=== PATIENT | female | born 1955 | race Caucasian/White ===

== ENCOUNTER 2019-12-08 05:27 | Inpatient (IN) ==
--- NOTE | 2019-12-08 05:37 | PROVIDER DOCUMENTATION ---
HPI-General Adult - General Chief Complaint: Altered Mental Status Stated Complaint: AMS Time Seen by Provider: 12/08/19 05:29 Source: EMS Allergies/Adverse Reactions: Patient Allergies Allergy/AdvReac Type Severity Reaction Status Date / Time latex AdvReac RASH Verified 12/08/19 06:16 Home Medications: Home Medication List Medication Instructions Recorded Confirmed Last Taken Type Folic Acid 1 mg PO BID 30 Days tablet 03/09/17 12/08/19 12/07/19 Rx Omeprazole [Prilosec] 40 mg PO DAILY@0700 30 Days 03/09/17 12/08/19 12/07/19 Rx capsule Bupropion S.r. [Wellbutrin Sr] 150 mg PO Q12HR 12/08/19 12/08/19 12/07/19 History Donepezil HCl 5 mg PO QPM 12/08/19 12/08/19 12/07/19 History Duloxetine [Cymbalta] 60 mg PO DAILY 12/08/19 12/08/19 12/07/19 History Guanfacine [Tenex] 1 mg PO RTTID 12/08/19 12/08/19 12/07/19 History Levothyroxine [Synthroid] 50 microgm PO DAILY 12/08/19 12/08/19 12/07/19 History Talent Carbonate 150 mg PO BID 12/08/19 12/08/19 12/07/19 History Mirtazapine 30 mg PO RTQHS 12/08/19 12/08/19 12/07/19 History Olanzapine 10 mg PO DAILY 12/08/19 12/08/19 12/07/19 History Primidone 50 mg PO BID 12/08/19 12/08/19 12/07/19 History Propranolol HCl [Propranolol HCl 120 mg PO DAILY 12/08/19 12/08/19 12/07/19 H istory ER] Sulfasalazine 500 mg PO TID 12/08/19 12/08/19 12/07/19 History Thiamine [Vitamin B-1] 100 mg PO DAILY 12/08/19 12/08/19 12/07/19 History Trazodone [Desyrel] 50 mg PO QPM PRN PRN 12/08/19 12/08/19 12/07/19 History - History of Present Illness -Gen Adult Nature of Presenting Problems: HX BY EMS. REPORT CALL EMS FOR PT DOWN IN BATHROOM FLOOR AND UNABLE TO GET UP. NOT RESPOSIVE TO VERBAL STEMULI AT SCENE. NOT HYPOXIC, BS WAS 118. DID NOT COME TO ER WITH PT. Review of Systems - Adult - REVIEW OF SYSTEMS - ADULT ROS:: unobtainable per condition Constitutional: denies: chills, fever, night sweats Past History - Adult - PAST MEDICAL HISTORY-ADULT Review of Records: reports: Nursing Assessment Review, Medications Reviewed, Social history reviewed & non-contributory. Major Childhood Illnesses: reports: denies history Cardiovascular: reports: denies history, HTN Respiratory: reports: denies history Gastrointestinal: reports: denies history, GERD Obstetrical/Gynecological: reports: denies history Genitourinary: reports: denies history Musculoskeletal: reports: denies history Neurological: reports: dementia, Seizures/Epilepsy Psychiatric: reports: depression Endocrine/Immune: reports: denies history, thyroid disorder Other Conditions: reports: denies history - PRIOR SURGERIES/PROCEDURES Surgical/Procedure History: reports: hysterectomy, cholecystectomy - IMMUNIZATION STATUS Childhood Immunizations: See Nurse Assessment Flu Vaccine: See Nurse Assessment - FAMILY HISTORY Family History: reviewed, not pertinent Physical Exam-General - PHYSICAL EXAM-ADULT Initial Vital Signs Reviewed: Yes (RECTAL TEMP 97.) - CONSTITUTIONAL General Appearance: obtunded - EYES Eyes: PERRL/EOMI, pink conjunctivae, other (APPEARS TO HAVE CORNEAL ABRASIONS R>L, ANT CHAMBERS CLEAR, PUPILS REACTIVE). negative: sclera injected, scleral icterus - HEAD, EARS, NOSE, MOUTH & THROAT HENMT: normocephalic/atraumatic, moist mucous membranes, dental decay - NECK Neck: non-tender, full range of motion, supple - RESPIRATORY Respiratory: chest non-tender, lungs clear, normal breath sounds, no respiratory distress, no accessory muscle use, rhonchi (UPPER AIRWAY RHONCHI BUT NO RALES OR TACHYPENA OR DISTRESS) - CARDIOVASCULAR Cardiovascular: regular rate, rhythm, no edema, no JVD, no murmur - GASTROINTESTINAL (ABDOMEN) Abdominal Exam: non tender, soft, no organomegaly. negative: rigid - MUSCULOSKELETAL Back Exam: normal inspection Extremity: normal range of motion, non-tender, normal inspection, no pedal edema , no calf tenderness, pelvis stable, slow capillary refill. negative: deformity - SKIN Integumentary: normal turgor, warm/dry (COOL AND MOTTLED HANDS AND FEET, PINK TORS. TOBACCO STAINS RIGHT FINGERS), mottled - NEUROLOGIC Neurologic: other (VERY DIFFICULT TO TEST. PT UNRESPOSIVE TO VERBAL AND TO STERNAL RUB AND PLACEMENT OF GUZMAN. SEEMS TO HAVE MOTOR TONE ALL EXTREMITIES AND FACE IS SYMMETRIC). negative: focal weakness - PSYCHIATRIC Psych/Mental Status: other (EYES OPEN, STARING, UNREPONSIVE TO VERBAL OR STERNAL RUB) Progress - PLAN OF CARE/RESULTS Progress/Plan/Lab Results: Orders Category Date Time Status Cardiac Monitoring DIRECTED Care 12/08/19 05:25 Ordered Finger Stick Blood Sugar (ED) DIRECTED Care 12/08/19 05:24 Ordered Guzman Cath Insertion ORDERED Care 12/08/19 05:29 Ordered Saline Loc NOW Care 12/08/19 05:25 Ordered CHEST-PORTABLE [RAD] Stat Exams 12/08/19 05:[address] HEAD W/O CONTRAST [CT] Stat Exams 12/08/19 05:[address] HEAD W/O CONTRAST [CT] Stat Exams 12/08/19 05:26 Ordered ABG [RESP] Stat Lab 12/08/19 05:25 Ordered AMMONIA [CHEM] Stat Lab 12/08/19 05:25 Uncollected BLOOD CULTURE [BLDCUL] Stat Lab 12/08/19 05:26 Ordered CBC WITH ELECTRONIC DIFF [HEME] Stat Lab 12/08/19 05:26 Uncollected COMPREHENSIVE METABOLIC PANEL [CHEM] Stat Lab 12/08/19 05:26 Ordered FREE T4 Stat Lab 12/08/19 05:[address] Stat Lab 12/08/19 05:26 Uncollected LACTATE, PLASMA [CHEM] Stat Lab 12/08/19 05:26 Uncollected MAGNESIUM [CHEM] Stat Lab 12/08/19 05:26 Uncollected TROPONIN T HIGH SENSITIVITY Stat Lab 12/08/19 05:26 Uncollected URINALYSIS W/POSS RFLX CULT [URINALYSIS] Stat Lab 12/08/19 05:26 Uncollected URINE DRUG SCREEN PL Stat Lab 12/08/19 05:26 Uncollected EKG [EKG] Stat Ther 12/08/19 05:25 Ordered pt had a critical call on the floor and went upstairs and started bipap. pt then declined and was brought to the ed still an in pt and pt was intubated in trauma room. pt was intubated at 1359 with no issue and then transferred to [facility] ICU bed 12 Ativan added for seizure activity post intubation, propofol drip pxcray shows good tube placement. Added critical care time 50 min Result Diagrams: 12/08/19 05:59 12/08/19 05:59 - REASSESSMENT Reassessment #1 Time Reassessed: 06:00 Status: improving (NOW BLINKING EYES, APPEARS TOHAVE CORNEAL MCELROY OR ABRASION, SCORH OF LEFT FRONTAL SCALP HAIR EVIDENT. BECOMMING MORE RESPONSIVE, BLINKING HER EYES AND SEEMS TO RESPOND TO HER NAME. INTIAL GCS 6 BUT NOW 8. WILLHOLD OFF ON INTUBATION /SEDATION P OX 96% ROOM AIR AND WOULD RATHER NOT SEDATE JUST NOW TO SEE IF CAN IMPROVE REPOSNSIVENESS. INITAL FSBS 118. BP185/104. CT BRAIN W/O ACUTE CAHNGES.) Reassessment #2 Time Reassessed: 08:00 Status: improving (Seen and examined by me. Case discussed with Dr. Sneed at shift change. Awaiting call back from hospitalist, whom we have re-paged. Patient currently is at GCS 14. Is normotesnive at this time. Slightly toxic o n lithium, positive for phenobarbitol on UDS. Hyponatremic on chemistries. Lactic is slightly elevated, and it is unclear how she wound up on floor. It is possible she had seizure last night/this morning as her mental status has improved since arrival in ED per Dr. Sneed.) - EKG 1 Time of EKG reading by physician:: 06:27 EKG Read and Signed by:: Jony Sneed EKG Interpretation (*Must complete 3 of following elements*): Abnormal Rate: 87 Rhythm: NSR [place]: normal QRS: normal VA Interval: prolonged ST Wave: normal Comments: SINUS WITH 1ST DEGREE AV BLOCK - XRAY 1 XRAY Study: Chest Impression: Normal (NO INFILTRATES OR MASSES.) - CT/MRI 1 CT Study: Head Impression: Normal, See EMR Report - CONSULTS/PCP/HOSPITALIST Notification #1 *Consult/PCP/Hospitalist*: Isrrael paged at [phone], [phone] Time Discussed: 08:37 Consult Disposition: Will see in ED, Admit - CHANGE OF SHIFT REPORT (ED Provider) 1 Report Given and Care Transferred to:: DR Vickie DENNIS Time of Transfer: 07:24 Procedures - INTUBATION Time of Intubation: 15:39 Mallampati Class: 2 Intubation Method: orotracheal Equipment: Glidescope Tube Size (cm): 7.0 Pretreated with 100% Oxygen?: Yes Breath Sounds after Intubation: equal ETT Primary Tube Confirmation: Capnometry CO2 Change, Direct Visualization, Chest Rise and Fall, Tube placement verified on XRAY, Tube Repositioned, Placement re-confirmed with CXR after reposition Intubation Complications: no complications Vent Settings: See Respiratory Therapy Notes Departure - Departure Date of Disposition Decision: 12/08/19 Time of Disposition Decision: 08:37 DIAGNOSIS: Hyponatremia, Tobacco use disorder Talent intoxication Qualifiers: Encounter type: initial encounter Injury intent: accidental or unintentional Qualified Code(s): T56.891A - Toxic effect of other metals, accidental (unintentional), initial encounter Altered mental state Qualifiers: Altered mental status type: stupor Qualified Code(s): R40.1 - Stupor Corneal abrasion of both eyes Qualifiers: Encounter type: initial encounter Qualified Code(s): S05.01XA - Injury of conjunctiva and corneal abrasion without foreign body, right eye, initial encounter Seizure disorder, primary generalized Qualifiers: Intractability: not intractable Status epilepticus: without status epilepticus Qualified Code(s): G40.309 - Generalized idiopathic epilepsy and epileptic syndromes, not intractable, without status epilepticus Disposition: ADMITTED INPATIENT 09 Certified Medical Emergency: Emergent Condition: Fair - Critical Care Note This patient required my direct & personal management of CC.: Yes Total Time (mins): 50 Critical Care Statement: This patient required my direct personal management to treat or rule out processes, the absence of which, could potentiallly result in sudden, clinically significant life or limb threatening deterioration. Attestation - Physician/ MIGUEL A Attestation Patient care was provided by Advanced Practice Provider:: No The physician spent face to face time with patient:: Yes Advanced Practice Provider documentation review:: Supervising physician onsite and consulted in the evaluation and care of this patient. The physician did have a face to face encounter with the patient. Glascow Coma Score - Glascow Coma Score Best Eye Response ([place]): (4) open spontaneously Best Verbal Response ([place]): (4) confused conversation Best Motor Response ([place]): (6) obeys commands [place] Total: 14 GCS Comment: Done by me at 1947
[2019-12-08 05:43] LABS: BE -4.6 mmoll (-3.0-3.0); BLOOD TYPE ARTERIAL; METHB 2.9 % (0.0-1.5); O2(CT) 16.1 mL/dL (15.0-23.0); PCO2(98.6) 32 mmHg (35-45); PO2(98.6) 54 mmHg (60-100); SAMPLE BLOOD; SAO2 90.7 % (95.0-100.0); THB 13.4 g/dL (11.5-17.4); pH(98.6) 7.39 (7.35-7.45)
--- NOTE | 2019-12-08 05:44 | Diag Imaging Result Doc PS360 ---
EXAM: CT HEAD W/O CONTRAST HISTORY: AMS TECHNIQUE: CT head without intravenous contrast COMPARISON: 02/15/2017 FINDINGS: No parenchymal hemorrhage. No epidural or subdural hematoma. No subarachnoid hemorrhage. Mild atrophy. No mass identified on this noncontrasted exam. No hydrocephalus. No sinus opacification. IMPRESSION: 1.No hemorrhage 2.Mild atrophy with mild chronic microvascular ischemic changes This exam was performed using automated exposure control, adjustment of mA or kV according to patient size, and/or use of iterative reconstruction technique. Electronically signed by Krishan Cervantes 12/08/2019 5:42 AM
[2019-12-08] MEDS ORDERED: AMIDATE IV ONE (05:47)
[2019-12-08] MEDS ORDERED: AMIDATE ONE ×3 (05:47→14:57)
[2019-12-08] MEDS ORDERED: QUELICIN ONE ×3 (05:48→14:58)
[2019-12-08] MEDS ORDERED: QUELICIN IV ONE (05:48)
[2019-12-08 06:15] LABS: ALLEN TEST NO; MODALITY ROOM AIR; O2HB 85.6 % (95.0-99.0)
[2019-12-08 06:17] LABS: URINE SOURCE CATH
[2019-12-08 06:19] LABS: BASO# 0.04 X1000 (0.0-0.2); BASO% 0.4 % (0.0-0.8); EOS# 0.29 X1000 (0.0-0.7); HEMATOCRIT 41.3 % (37.0-47.0); HEMOGLOBIN 12.7 g/dL (12.0-16.0); IMM GRAN# 0.07 X1000 (0.0-0.04); IMM GRAN% 0.7 % (0.0-0.5); LYMPH# 1.41 X1000 (1.2-3.4); LYMPH% 14.5 % (20.5-51.1); MCH 28.3 PG (27-31); MCHC 30.8 g/dL (33-37); MONO# 0.62 X1000 (0.11-0.59); MONO% 6.4 % (1.7-9.3); NEUT# 7.27 X1000 (1.4-6.5); PLT 352 X1000 (130-400); RBC 4.49 XMIL (4.2-5.4); RDW 14.8 % (11.5-14.5)
[2019-12-08 06:24] LABS: BILIRUBIN URINE NEGATIVE (NEGATIVE); BLOOD URINE NEGATIVE (NEGATIVE); COLOR YELLOW; GLUCOSE URINE NEGATIVE (NEGATIVE); KETONE URINE NEGATIVE (NEGATIVE); LEUKOCYTES URINE NEGATIVE (NEGATIVE); NITRITE URINE NEGATIVE (NEGATIVE); PH URINE 6.5; PROTEIN URINE TRACE mg/dL (NEGATIVE); SP GRAVITY URINE 1.007; TURBIDITY URINE CLEAR (CLEAR); UR EPITHELIAL CELLS <10 /HPF (<10); URINE BACTERIA NEGATIVE /HPF; URINE RBC <10 /HPF (<10); URINE WBC <10 /HPF (<10); UROBILINOGEN URINE NORMAL (NORMAL)
[2019-12-08 06:30] LABS: UR AMPHETAMINES QUAL NONE DETECTED (NONE DETECT); UR BARBITUATES QUAL PRESUMPTIVE POSITIVE (NONE DETECT); UR BENZODIAZEPIN QUAL NONE DETECTED (NONE DETECT); UR CANNABINOIDS QUAL NONE DETECTED (NONE DETECT); UR COCAINE QUAL NONE DETECTED (NONE DETECT); UR METHADONE QUAL NONE DETECTED (NONE DETECT); UR METHAMPHETAMINE QUAL NONE DETECTED (NONE DETECT); UR OPIATES QUAL NONE DETECTED (NONE DETECT); UR OXYCODONE QUAL NONE DETECTED (NONE DETECT); UR PCP QUAL NONE DETECTED (NONE DETECT); UR PROPOXYPHENE QUAL NONE DETECTED (NONE DETECT); UR TCA QUAL NONE DETECTED (NONE DETECT)
[2019-12-08 06:38] LABS: INFLUENZA A NEGATIVE (NEGATIVE); INFLUENZA B NEGATIVE (NEGATIVE)
[2019-12-08 06:39] LABS: ALBUMIN 4.2 g/dL (3.5-5.0); CALCIUM 9.2 mg/dL (8.8-10.2); POTASSIUM 4.8 mmol/L (3.5-5.1); TOTAL BILIRUBIN 0.4 mg/dL (0.20-1.00); TOTAL PROTEIN 7.3 g/dL (6.3-8.3)
--- NOTE | 2019-12-08 06:43 | Diag Imaging Result Doc PS360 ---
EXAM: CHEST-PORTABLE HISTORY: AMS TECHNIQUE: Single view COMPARISON: 02/23/2017 FINDINGS: The lungs are well expanded. The heart is not enlarged. The vessels are not distended. There are no infiltrates. No effusion identified. IMPRESSION: Negative exam. Electronically signed by Krishan Cervantes 12/08/2019 6:40 AM
--- NOTE | 2019-12-08 06:51 | EKG Report ---
Test Performed on : 12/08/2019 06:27:30 AM Test Reason : ALTERED MENTAL STATE Blood Pressure : / mmHG Vent. Rate : 087 BPM Atrial Rate : 087 BPM P-R Int : 210 ms QRS Dur : 064 ms QT Int : 348 ms P-R-T Axes : 074 055 086 degrees QTc Int : 418 ms Sinus rhythm. with 1st degree AV block. Otherwise normal ECG When compared with ECG of 24-FEB-2017 02:45, Criteria for Septal infarct are no longer present Unconfirmed Result
[2019-12-08] MEDS ORDERED: GENTAMICIN 0.3% OPH OINT BOTH EYES ONE (07:21)
[2019-12-08] MEDS ORDERED: NS 1,000 ML IV ONE (07:23)
[2019-12-08] MEDS ORDERED: GENTAMICIN 0.3% OPH DROPS BOTH EYES ONE (08:00)
[2019-12-08] MEDS ORDERED: ZOFRAN IV PRN (10:12)
[2019-12-08] MEDS ORDERED: PROTONIX IV SCH (10:15)
[2019-12-08] MEDS ORDERED: SODIUM CHLORIDE 0.9% INJ SCH ×2 (10:15→17:30)
[2019-12-08] MEDS: DUONEB (A & A) INH SCH ×4 (11:11→23:50)
[2019-12-08] MEDS: GENTAMICIN 0.3% OPH DROPS BOTH EYES SCH ×2 (12:05→21:29)
[2019-12-08] MEDS: M.V.I.-12 10 ML, FOLIC ACID 1 MG, MAGNESIUM SULFATE 1 GM, THIAMINE 100 MG in NS 1,000 ML IV SCH (13:09)
[2019-12-08] MEDS ORDERED: LASIX IV ONE (14:15)
[2019-12-08] MEDS ORDERED: LASIX ONE (14:23)
[2019-12-08] MEDS ORDERED: MORPHINE IV ONE ×2 (14:28)
[2019-12-08] MEDS ORDERED: MORPHINE ONE (14:41)
[2019-12-08] MEDS ORDERED: S2 RACEPINEPHRINE 2.25% INH ONE (14:51)
[2019-12-08] MEDS ORDERED: S2 RACEPINEPHRINE 2.25% ONE (14:57)
[2019-12-08 15:27] LABS: BE -11.1 mmoll (-3.0-3.0); BLOOD TYPE ARTERIAL; HCO3-(ACT) 16.1 mmoll (20.0-26.0); METHB 1.6 % (0.0-1.5); O2(CT) 18.3 mL/dL (15.0-23.0); O2HB 92.3 % (95.0-99.0); PO2(98.6) 94 mmHg (60-100); SAMPLE BLOOD; SAO2 95.2 % (95.0-100.0); SRATE 14 BPM
[2019-12-08 15:43] LABS: CK INDEX 0.9 (0.0-2.5); CK-MB 1.95 ng/mL (0.0-5.0)
[2019-12-08] MEDS ORDERED: DUONEB (A & A) INH PRN (15:52)
[2019-12-08] MEDS ORDERED: DIPRIVAN 1% 1,000 MG/100 ML BOTTLE ONE (15:53)
[2019-12-08] MEDS ORDERED: ATIVAN ONE (15:56)
[2019-12-08] MEDS: DIPRIVAN 1% 1,000 MG/100 ML BOTTLE IV SCH ×2 (16:03→20:32)
--- NOTE | 2019-12-08 16:48 | Diag Imaging Result Doc PS360 ---
EXAM: CHEST-PORTABLE HISTORY: sob, CAT TECHNIQUE: Single view COMPARISON: 6:15 AM FINDINGS: Interval placement of an endotracheal tube. This is located 1 to 2 cm above the cassandra. The lungs are well expanded and clear. IMPRESSION: Endotracheal tube in good position Electronically signed by Krishan Cervantes 12/08/2019 4:46 PM
[2019-12-08 17:01] LABS: pH(98.6) 7.08 (7.35-7.45)
[2019-12-08 17:03] LABS: PCO2(98.6) 67 mmHg (35-45)
[2019-12-08 17:04] LABS: MODALITY BI PAP
[2019-12-08 17:05] LABS: ALLEN TEST NO
[2019-12-08] MEDS ORDERED: SODIUM CHLORIDE 0.9% INJ PRN (17:39)
[2019-12-08 17:48] LABS: ALLEN TEST YES; BE -6.5 mmoll (-3.0-3.0); BLOOD TYPE ARTERIAL; HCO3-(ACT) 19.8 mmoll (20.0-26.0); O2(CT) 18.6 mL/dL (15.0-23.0); O2HB 94.9 % (95.0-99.0); PCO2(98.6) 41 mmHg (35-45); PO2(98.6) 131 mmHg (60-100); SAMPLE BLOOD; SAO2 97.3 % (95.0-100.0); SRATE 12 BPM; THB 13.8 g/dL (11.5-17.4); TVOL 500 mL; pH(98.6) 7.29 (7.35-7.45)
[2019-12-08 17:49] LABS: MODALITY VENTILATOR
--- NOTE | 2019-12-08 17:49 | HISTORY AND PHYSICAL ---
CHIEF COMPLAINT: Altered mental status, fall. HISTORY OF PRESENT ILLNESS: This is a 64-year-old female who presented to the emergency room via EMS, after her found her lying on the bathroom floor. He was unable to pick her up. She was unable to get up even with help. EMS reports that the patient was not responsive to verbal stimuli, was not hypoxic, blood sugar was 118 when they arrived. On arrival to the emergency room, the patient was unresponsive to verbal stimuli as well as a sternal rub. At first arrival, she would open her eyes and stare straight ahead. According to the chart, within about 30 minutes after arriving, she began to blink her eyes, responding to verbal stimulation. At the time of my exam at about 9:30, the patient was awake, she was alert. Her granddaughter was at the bedside. She would look at the granddaughter, make eye contact and smile any time. She responded all tactile stimuli. She would open her eyes to verbal stimuli, although she intermittently answered the staff. When her granddaughter spoke, she would open her eyes, look toward her granddaughter. She would attempt to answer her back. She would follow her commands. Ms. Jaffe has a history of psychiatric disorders, being admitted to [facility] twice in 2017. She did have heavy depression, even being catatonic at one time. The granddaughter states that Ms. Jaffe had been in depression with episodes similar to this, having catatonia at one of the admissions. The patient lives with her . Her granddaughter and son are very active in her care. The granddaughter states that in the past, Ms. Jaffe has had difficulty with her medications. Now, the granddaughter makes a pill box for a week, gives it to the grandfather, and he dispenses the medications. She did report that it seems that Ms. Jaffe has had an increase in her dementia over the last few months, although it has been a very slight increase, and she states that she was in her normal health until she was found on the floor. PAST MEDICAL HISTORY: Dementia, hypertension, seizure disorder, hypothyroid, depression. PAST SURGICAL HISTORY: Cholecystectomy and hysterectomy. SOCIAL HISTORY: She smokes 1 to 2 packs a day. She does drink 3 beers a day. ALLERGIES: Latex. HOME MEDICATIONS: A list will be obtained by the nursing staff and once verified, we will review and restart as appropriate. REVIEW OF SYSTEMS: Unable to obtain at this time. PHYSICAL EXAMINATION: GENERAL: This is a 64-year-old female, who is lying on the stretcher in the emergency room in no distress. VITAL SIGNS: Blood pressure is 133/75 with a heart rate of 89. Respirations are 20. Temperature is 98.2 degrees. O2 saturations are 97 to 99 percent on room air. EYES: Pupils equal, round, react to light. Sclerae are anicteric. HEENT: Head is normocephalic, atraumatic. Mucous membranes are moist. NECK: Supple with trachea midline. CARDIOVASCULAR: Regular rate and rhythm. S1 and S2 appreciated. Peripheral pulses are palpable x4 extremities. No murmur noted. PULMONARY: Breath sounds are diminished throughout. Chest rises and falls symmetric with respiration. GASTROINTESTINAL: Abdomen is soft, nondistended, with bowel sounds in all 4 quadrants. NEUROLOGIC: She will open her eyes to verbal stimuli. She does withdraw from pain. She does open her eyes to any conversation from her granddaughter. She does look toward her as she walks across the room. She does attempt to follow commands. She does have garbled speech or mumbling back to anything her granddaughter states to her. SKIN: Warm and dry, with some scorched hair noted to her left frontal scalp, although the granddaughter is unaware of any recent garcia. No scorched/burned nasal hairs, eyelashes or eyebrows noted. LABORATORY AND DIAGNOSTIC DATA: WBC is 9.7 with hemoglobin 12.7, hematocrit 41.3, and platelets of 352,000. Sodium is 125, potassium 4.8, BUN 6, creatinine 1 with a glucose of 120. Urinalysis is essentially negative. Urine drug screen is positive for barbiturates with a lithium level being 1.32. Influenza A and B are negative. Blood cultures are pending. CT of the head reveals no hemorrhage, no hydrocephalus, no sinus opacification, no mass identified. Mild atrophy. Chest x-ray revealed a negative exam. Vessels are not distended. There are no infiltrates. Lungs are well expanded. Heart is not enlarged. ASSESSMENT: 1. Hyponatremia. 2. Altered mental status. 3. Corneal abrasions bilaterally with scorched area noted to her hair on her left forehead. 4. History of seizure disorder. 5. History of depression. 6. Dementia. 7. Hypertension. 8. Hypothyroid. PLAN: The patient will be admitted to the medical-surgical floor, where she will be placed on telemetry. She will be placed on fall precautions with neurologic checks every 4 hours. DuoNeb q.4 hours. We will use gentamicin eyedrops every 8 hours. We will continue with IV hydration. The daughter does state that the patient drinks at least 3 beers a day every day and she has for quite some time. We will obtain a blood alcohol. The daughter also stated that her appetite has been decreasing over the past few months, eating less. We will give a banana bag. We will check a BMP and a CBC with differential in the morning. We will identify her home medications and continue as appropriate. Give Protonix IV once. She is awake and alert, we will be able to change that over to oral and continue her home medications. For DVT prophylaxis, will use SCDs. We will give no anticoagulation as we are unsure of any injuries and falls. Plan was discussed with Dr. Arcos. Further treatments pending hospital course. Dictated by MIRIAM Parker for Azael Arcos MD cc: MIRIAM Parker MD [facility]
[2019-12-08] MEDS: ZYVOX 600 MG/D5W 600 MG/300 ML IVPB IV SCH (18:16)
[2019-12-08] MEDS: ZOSYN 3.375 GM in NS 50 ML IV SCH (18:16)
[2019-12-08 18:36] LABS: HEMOGLOBIN A1C 3.9 % (4.8-6.0)
[2019-12-08 19:07] LABS: ALB/GLOB RATIO 1.4; ALBUMIN 3.7 g/dL (3.5-5.0); CALCIUM 8.8 mg/dL (8.8-10.2); CREATININE 1.3 mg/dL (0.5-0.9); DIRECT BILIRUBIN 0.4 mg/dL (0.00-0.20); POTASSIUM 4.8 mmol/L (3.5-5.1); TOTAL BILIRUBIN 0.72 mg/dL (0.20-1.00); TOTAL PROTEIN 6.4 g/dL (6.3-8.3)
[2019-12-08 19:35] LABS: CK INDEX 0.9 (0.0-2.5); CK-MB 1.94 ng/mL (0.0-5.0)
--- NOTE | 2019-12-08 20:26 | Diag Imaging Result Doc PS360 ---
EXAM: KUB ABDOMEN HISTORY: NG and abdominal distention TECHNIQUE: Single view COMPARISON: None. FINDINGS: Nasogastric tube overlies the stomach. Stomach and bowel loops are filled with air. No organomegaly. There are surgical clips in the right upper quadrant. No abnormal calcifications. IMPRESSION: Nasogastric tube in the stomachTw Electronically signed by Krishan Cervantes 12/08/2019 8:23 PM
[2019-12-09] MEDS: DIPRIVAN 1% 1,000 MG/100 ML BOTTLE IV SCH ×3 (00:14→09:22)
--- NOTE | 2019-12-09 00:56 | HISTORY AND PHYSICAL ---
ADDENDUM: Patient seen and examined by myself. Full note dictated and discussed with nurse practitioner. Patient presented to the hospital initially confused. Ambulance apparently had been called as she was found down in her bathroom floor and she was unresponsive to verbal stimuli. Upon arrival to the ER, she is easily arousable. Vital signs are stable. She opens her eyes and attempts to answer questions. She is in minimal respiratory distress. She is off BiPAP. Therefore, we will admit her to the floor and continue her workup. She does have hyponatremia. Approximately 6 hours after initial evaluation, Ms Jaffe had been transferred to the floor. Upon re-evaluation by Respiratory Therapy, they noted that she was agonal. Cat call was performed. She was moved down to the ER. She was placed on BiPAP. Unfortunately, this was not effective enough with pH of 7.0. Therefore, she will be intubated and transferred to [facility]. cc: Azael Arcos MD MTDD
--- NOTE | 2019-12-09 02:50 | PULMONOLOGY CONSULTATION ---
DATE: 12/08/2019 REASON FOR CONSULTATION: Respiratory failure. HISTORY OF PRESENT ILLNESS: Ms. Jaffe is a 64-year-old female with history of seizure disorder, history of dementia, history of depression with ongoing alcohol and tobacco use, who was found lying in the floor by her unresponsive. The patient was not hypoxemic and had a normal blood glucose. The patient was brought to the emergency room and had gradual improvement in her mental status over several hours. She was being evaluated per the floor when she developed diaphoresis, tachypnea, and progressive hypoxemia. The patient was urgently intubated. While on the ventilator, she did have a witnessed seizure. She has subsequently been transferred to [facility]. PAST MEDICAL HISTORY: 1. History of major depressive disorder with psychotic features. The patient admitted to [facility] in January of 2017 for altered mental status and catatonia. 2. History of hypothyroidism. 3. History of seizure disorder. 4. Status post cholecystectomy. 5. Status post hysterectomy. 6. History of LASIK eye surgery. 7. Gastroesophageal reflux disease. 8. History of urinary tract infection. 9. Hypertension. SOCIAL HISTORY: Forty pack-year history for tobacco. Occasional alcohol use. PHYSICAL EXAMINATION: General: Reveals a sedated white female resting comfortably on mechanical ventilation. Vital Signs: Blood pressure 117/78, heart rate 102, respiratory rate 20, oxygen saturation 98%. HEENT: Pupils are equal. Oropharynx appears clear without lesions. Neck: Supple. Chest: Reveals good air entry bilaterally with occasional rhonchi. Cardiac: S1-S2. Abdomen: Distended with increased tympany. Extremities: Without edema. LABORATORIES: Chest x-ray reveals good endotracheal tube placement without significant infiltrates. She has marked distention of the abdomen. Arterial blood gas reveals a pH 7.29, pCO2 of 41, PO2 of 131. Chemistry, sodium 133, potassium 4.8, chloride 100, bicarbonate 18, anion gap 15. TSH is elevated at 11.13. High sensitivity troponin initial was 12, second was 24. IMPRESSION: A 64-year-old with: 1. Acute hypoxemic respiratory failure. 2. Seizure disorder. 3. Elevated troponin level, high sensitivity. 4. Hypothyroidism. 5. Abdominal distention with ileus versus small bowel obstruction. DISCUSSION: A 64-year-old with problems outlined above. The patient was found with altered mental status and has had another seizure today suggesting that a seizure may have caused her decompensation. It is not clear that the event that she had prior to intubation was seizure related by description, but may have been. With elevation of the troponin, cannot rule out a coexistent seizure/cardiac ischemia. RECOMMENDATIONS: 1. Continue ventilatory support through the evening. 2. Continue sedation. 3. Follow up CK level tomorrow to rule out rhabdomyolysis. 4. Follow up troponin level to rule out evidence of cardiac ischemia. 5. Continue gastric acid suppression. 6. Prognosis is guarded. TIME: Spent in critical care management, 1 hour. cc: Erick Schaefer MD
[2019-12-09] MEDS: DUONEB (A & A) INH SCH ×6 (03:25→23:45)
[2019-12-09 04:29] LABS: ALLEN TEST YES; BE -2.7 mmoll (-3.0-3.0); BLOOD TYPE ARTERIAL; HCO3-(ACT) 22.8 mmoll (20.0-26.0); METHB 1.7 % (0.0-1.5); O2(CT) 18.6 mL/dL (15.0-23.0); O2HB 95.9 % (95.0-99.0); PCO2(98.6) 40 mmHg (35-45); PO2(98.6) 150 mmHg (60-100); SAMPLE BLOOD; SAO2 97.8 % (95.0-100.0); SRATE 12 BPM; THB 13.6 g/dL (11.5-17.4); TVOL 500 mL; pH(98.6) 7.36 (7.35-7.45)
[2019-12-09 04:37] LABS: MODALITY VENTILATOR
[2019-12-09] MEDS: ZOSYN 3.375 GM in NS 50 ML IV SCH ×5 (05:01→17:20)
[2019-12-09] MEDS: GENTAMICIN 0.3% OPH DROPS BOTH EYES SCH ×3 (05:01→20:57)
[2019-12-09] MEDS: ZYVOX 600 MG/D5W 600 MG/300 ML IVPB IV SCH ×2 (05:01→18:12)
[2019-12-09 05:47] LABS: HEMATOCRIT 42.3 % (37.0-47.0); HEMOGLOBIN 12.7 g/dL (12.0-16.0); MCH 28.9 PG (27-31); MCV 96.4 FL (81-99); MPV 10.8 FL (7.4-10.4); RBC 4.39 XMIL (4.2-5.4); WBC 11.86 X1000 (4.8-10.8)
[2019-12-09] MEDS: SYNTHROID IV SCH (06:35)
[2019-12-09] MEDS: PROTONIX IV SCH (06:35)
[2019-12-09 07:29] LABS: CALCIUM 8.8 mg/dL (8.8-10.2); CREATININE 1.2 mg/dL (0.5-0.9); POTASSIUM 4.1 mmol/L (3.5-5.1)
--- NOTE | 2019-12-09 08:10 | Diag Imaging Result Doc PS360 ---
EXAM: CHEST-PORTABLE INDICATION: respiratory failure on ventilator TECHNIQUE: One view COMPARISON: 12/08/2019 FINDINGS: The ET tube is in stable position. There has been interval placement of an NG tube, which projects below the diaphragm and is assumed to be in the lumen of the stomach in the expected position. The lungs remain grossly clear. No new consolidation is identified. Cardiac silhouette is stable. IMPRESSION: Interval placement of NG tube as described. Stable chest, otherwise. Electronically signed by Yehuda Weiner 12/09/2019 8:08 AM
--- NOTE | 2019-12-09 08:12 | Diag Imaging Result Doc PS360 ---
EXAM: KUB ABDOMEN INDICATION: abdomen distention TECHNIQUE: One view COMPARISON: 12/08/2019 FINDINGS: An NG tube is in place in approximately stable position. There is less gaseous distention of the stomach as compared to the previous study. Bowel distention that is predominantly colonic is unchanged. No large volume free abdominal gas is identified. The abdomen is stable, otherwise. IMPRESSION: Decompression of the gas distended stomach. Stable abdomen, otherwise. Electronically signed by Yehuda Weiner 12/09/2019 8:10 AM
--- NOTE | 2019-12-09 08:36 | EKG Report ---
Test Performed on : 12/09/2019 06:26:58 AM Test Reason : resp failure Blood Pressure : / mmHG Vent. Rate : 112 BPM Atrial Rate : 112 BPM P-R Int : 176 ms QRS Dur : 068 ms QT Int : 340 ms P-R-T Axes : 060 016 067 degrees QTc Int : 464 ms Sinus tachycardia. Otherwise normal ECG When compared with ECG of 08-DEC-2019 16:01, (Unconfirmed) No significant change was found Confirmed by Bunny PATRICK, Kota Rawls ([id number]) on 12/10/2019 6:55:23 PM
[2019-12-09] MEDS: LOVENOX SUBQ SCH (09:14)
[2019-12-09] MEDS: NS 1,000 ML IV SCH (09:14)
[2019-12-09] MEDS ORDERED: ATIVAN IV ONE (10:18)
[2019-12-09] MEDS ORDERED: ATIVAN IV PRN (10:23)
[2019-12-09] MEDS: M.V.I.-12 10 ML, FOLIC ACID 1 MG, MAGNESIUM SULFATE 1 GM, THIAMINE 100 MG in NS 1,000 ML IV SCH (10:33)
[2019-12-09 11:20] LABS: ALLEN TEST YES; BE -2.8 mmoll (-3.0-3.0); BLOOD TYPE ARTERIAL; HCO3-(ACT) 22.7 mmoll (20.0-26.0); METHB 1.5 % (0.0-1.5); MODALITY VENTILATOR; O2(CT) 17.7 mL/dL (15.0-23.0); O2HB 95.9 % (95.0-99.0); PCO2(98.6) 37 mmHg (35-45); PO2(98.6) 126 mmHg (60-100); SAMPLE BLOOD; SAO2 97.6 % (95.0-100.0); pH(98.6) 7.38 (7.35-7.45)
[2019-12-09] MEDS ORDERED: LOPRESSOR IV PRN (13:54)
[2019-12-09] MEDS: INDERAL LA PO SCH (15:21)
--- NOTE | 2019-12-09 16:44 | ECHO REPORT ---
ORDER DATE: 12/09/2019 TWO D ECHOCARDIOGRAM: 1. Technically suboptimal study. 2. Very poor acoustic window. 3. Measurements could not be accurately obtained as the patient was intubated on ventilator. 4. Normal left ventricular cavity size. 5. Hyperdynamic left ventricular systolic function. 6. Estimated ejection fraction of 70%. However, tachycardia was noted, heart rate of 128 beats per minute. This could over estimate the ejection fraction. 7. Mitral valve was normal. 8. Peak velocity across the aortic valve less than 2 m/sec. 9. By Doppler studies there is no aortic stenosis or regurgitation. 10. Aortic valve leaflets not well visualized. 11. Normal right ventricular cavity size and function. 12. Mild tricuspid regurgitation. 13. Peak velocity across the tricuspid valve could not be accurately assessed. 14. Pulmonic valve not well visualized. 15. Anterior echo-free space suggestive of pericardial fat pad noted. There is no pericardial effusion. cc: MD Smitha Castillo MD
--- NOTE | 2019-12-09 22:20 | PROGRESS NOTE ---
DATE: 12/09/2019 SUBJECTIVE: The patient is resting comfortably. She is currently sedated on the ventilator. No acute events noted overnight. OBJECTIVE: Vital Signs: Temperature 98.6 degrees, blood pressure 163/94, heart rate 108, respirations 18, O2 saturation 98% on the mechanical ventilator. General: This is a chronically ill-appearing, elderly female lying in bed, in no acute distress. Heart: S1, S2 normal. Tachycardic. Lungs: Equal air entry bilaterally. No wheezing. No rales. Abdomen: Positive bowel sounds. Soft, nontender, nondistended. Extremities: No edema. No cyanosis. Neurologic: The patient is sedated on the ventilator. LABS: White blood cell count 11, hemoglobin 12, hematocrit 42, platelets 252,000. Sodium 136, potassium 4.1, chloride 100, CO2 of 17, BUN 9, creatinine 1.2. Glucose 95. Chest x-ray shows no acute disease. ASSESSMENT AND PLAN: 1. Acute hypoxemic respiratory failure. Continue with ventilatory management as directed by the dye worker. 2. Seizure disorder. The patient has been having seizure activity. We will order an EEG to be done Wednesday and consult with the neurologist. The patient is currently on p.r.n. Ativan. 3. Bipolar disorder. The patient's lithium level was slightly elevated yesterday. It is now back to normal. We will restart the patient's psychiatric medications once she has been extubated. 4. Hypertension. We will start the patient on p.r.n. Lopressor. 5. Hypothyroidism. Continue on Synthroid. 6. Dementia. Aware. 7. Alcohol abuse. We will monitor the patient closely for withdrawal. She is on p.r.n. Ativan. 8. Depression. Aware. 9. Gastrointestinal prophylaxis. Continue on IV Protonix. 10. Deep vein thrombosis prophylaxis. Continue on Lovenox. cc: Smitha Cardona MD
--- NOTE | 2019-12-09 22:34 | PULMONOLOGY PROGRESS NOTE ---
DATE: 12/09/2019 SUBJECTIVE: The patient's sedation vacation is on hold. She is arousable. Her heart rate is increasing. OBJECTIVE: Vital Signs: The patient has been afebrile for the last 24 hours. Blood pressure 133/96, heart rate 130, respiratory rate 20, oxygen saturation 97%. HEENT: Pupils are equal and reactive. Oropharynx appears clear. Neck: Supple. Chest: Reveals occasional rhonchi bilaterally without wheezing or tactile fremitus. Cardiac: S1, S2. Abdomen: Soft with diminished bowel sounds. Extremities: Without edema. LABORATORIES: White blood count 11.86, hemoglobin 12.7, platelet count 252,000. Sodium 136, potassium 4.1, chloride 100 bicarbonate 18, BUN 9, creatinine 1.2. Chest x-ray is clear. Arterial blood gas reveals pH 7.36, pCO2 of 40, PO2 of 150. IMPRESSION: A 64-year-old with: 1. Acute hypoxemic respiratory failure. 2. Seizure disorder. 3. Elevated troponin yesterday but normal today. 4. Hypothyroidism. 5. Decrease abdominal distention with NG placement. PLAN: 1. Initiate spontaneous breathing trial. 2. Hold sedation. 3. Follow for seizures. 4. Continue gastric acid suppression. 5. Restart beta gricelda. 6. Anticipate extubation later today. TIME: Spent in critical care management, 35 minutes. cc: Erick Schaefer MD
[2019-12-10] MEDS: NS 1,000 ML IV SCH ×2 (00:28→11:46)
[2019-12-10] MEDS: ZOSYN 3.375 GM in NS 50 ML IV SCH ×5 (00:28→22:41)
[2019-12-10] MEDS: DUONEB (A & A) INH SCH ×6 (03:28→23:09)
[2019-12-10 04:59] LABS: ALLEN TEST YES; BLOOD TYPE ARTERIAL; HCO3-(ACT) 22.6 mmoll (20.0-26.0); O2(CT) 8.2 mL/dL (15.0-23.0); O2HB 96.2 % (95.0-99.0); PCO2(98.6) 38 mmHg (35-45); PO2(98.6) 112 mmHg (60-100); SAMPLE BLOOD; SAO2 97.6 % (95.0-100.0); THB 5.9 g/dL (11.5-17.4); pH(98.6) 7.37 (7.35-7.45)
[2019-12-10 05:00] LABS: MODALITY COOL AEROSOL
[2019-12-10 06:37] LABS: HEMATOCRIT 33.5 % (37.0-47.0); HEMOGLOBIN 9.9 g/dL (12.0-16.0); MCH 29.1 PG (27-31); MCHC 29.6 g/dL (33-37); MCV 98.5 FL (81-99); MPV 10.2 FL (7.4-10.4); RBC 3.4 XMIL (4.2-5.4); RDW 15.1 % (11.5-14.5); WBC 8.46 X1000 (4.8-10.8)
[2019-12-10] MEDS: GENTAMICIN 0.3% OPH DROPS BOTH EYES SCH ×3 (06:39→20:58)
[2019-12-10] MEDS: ZYVOX 600 MG/D5W 600 MG/300 ML IVPB IV SCH ×2 (06:40→17:03)
[2019-12-10 07:15] LABS: ALB/GLOB RATIO 1.3; ALBUMIN 2.9 g/dL (3.5-5.0); CALCIUM 8.2 mg/dL (8.8-10.2); CREATININE 1.1 mg/dL (0.5-0.9); POTASSIUM 3.4 mmol/L (3.5-5.1); TOTAL BILIRUBIN 0.69 mg/dL (0.20-1.00); TOTAL PROTEIN 5.2 g/dL (6.3-8.3)
--- NOTE | 2019-12-10 07:32 | Diag Imaging Result Doc PS360 ---
EXAM: CHEST-PORTABLE HISTORY: respiratory failure on ventilator TECHNIQUE: Single view COMPARISON: 12/09/2019 FINDINGS: the endotracheal and nasogastric tubes have been removed. The lungs are well expanded. No cardiomegaly. No pneumonia. No pleural effusions identified. IMPRESSION: Negative exam. Electronically signed by Krishan Cervantes 12/10/2019 7:30 AM
[2019-12-10] MEDS: PROTONIX IV SCH (08:22)
[2019-12-10] MEDS: LOVENOX SUBQ SCH (08:23)
[2019-12-10] MEDS: INDERAL LA PO SCH (08:23)
[2019-12-10] MEDS: SYNTHROID IV SCH (08:23)
[2019-12-10] MEDS: POTASSIUM CHLORIDE 20 MEQ/SWI 20 MEQ/100 ML IVPB IV SCH ×2 (08:24→09:43)
[2019-12-10] MEDS: M.V.I.-12 10 ML, FOLIC ACID 1 MG, MAGNESIUM SULFATE 1 GM, THIAMINE 100 MG in NS 1,000 ML IV SCH (10:09)
--- NOTE | 2019-12-10 14:51 | PULMONOLOGY PROGRESS NOTE ---
DATE: 12/10/2019 SUBJECTIVE: The patient is awake and alert. She has significant resting tremor. She appears to be comfortable. OBJECTIVE: The patient has been afebrile for the last 24 hours. Blood pressure 162/68, heart rate 76, respiratory rate 22, oxygen saturation 100% on 3 L per nasal cannula. HEENT: Pupils are equal and reactive. Oropharynx appears clear. Neck: Supple. Chest: Reveals occasional rhonchi bilaterally. Cardiac Examination: S1-S2. Abdomen: Soft. Extremities: Without edema. Laboratories: Chest x-ray reveals no active infiltrates. White blood count 8.46, hemoglobin 9.9, platelet count 243,000. Arterial blood gas reveals a pH of 7.37, pCO2 of 38, pO2 of 112. Sodium 136, potassium 3.4, chloride 104, bicarbonate 21, BUN 8, creatinine 1.1. Microbiology: Sputum culture preliminary reveals 1+ normal meena. IMPRESSION: A 64-year-old with: 1. Acute hypoxemic respiratory failure. 2. Seizure disorder. 3. Transient elevation in troponin. 4. Hypothyroidism. DISCUSSION: A 64-year-old with problems outlined above. She is doing well off mechanical ventilation. PLAN: 1. Agree with neurology evaluation as outlined by Dr. Cardona. 2. Continue bronchial hygiene. 3. Wean oxygen therapy. 4. Anticipate transfer to the floor. cc: Erick Schaefer MD
[2019-12-10] MEDS ORDERED: DESYREL PO PRN (15:10)
--- NOTE | 2019-12-10 19:17 | PROGRESS NOTE ---
DATE: 12/10/2019 SUBJECTIVE: The patient is awake and alert. OBJECTIVE: Vital Signs: Temperature 99 degrees, blood pressure 152/77, heart rate 77, respirations 16, O2 saturations 97% on 3 L nasal cannula. Intake 3.4 L, output 325. General: This is a chronically ill-appearing elderly female sitting up in bed in no acute distress. Heart: S1, S2 normal. Lungs: Equal air entry. No wheezing. No rales. No rhonchi. Abdomen: Positive bowel sounds. Soft, nontender, nondistended. Extremities: No edema, no cyanosis, no calf tenderness. Neurologic: The patient is alert and oriented x3. LABS: White blood cell count 8.4, hemoglobin 9.9, hematocrit 33, platelets 243,000. Sodium 136, potassium 3.4, chloride 104, CO2 of 21, BUN 8, creatinine 1.1, glucose 83, AST 48, ALT 53, alkaline phosphatase 108, albumin 2.9. ASSESSMENT AND PLAN: 1. Acute hypoxemic respiratory failure. Continue to try and wean the patient off of supplemental oxygen. Continue with incentive spirometry and bronchodilator therapy. 2. Possible seizure disorder. An EEG is planned for tomorrow. We will also consult with Neurology for further recommendations. Continue with p.r.n. Ativan. 3. Hypertension. Continue on Inderal. 4. Alcohol abuse. Aware. 5. Bipolar disorder. Continue on lithium. 6. Hypothyroidism. Continue on Synthroid. 7. Gastroesophageal reflux disease. Continue on omeprazole. 8. Deep vein thrombosis prophylaxis. Continue on Lovenox. 9. Disposition. The patient is stable for transfer to [facility]. cc: Smitha Cardona MD [facility]
[2019-12-10] MEDS: FOLIC ACID PO SCH (20:57)
[2019-12-10] MEDS: COLACE PO SCH (20:57)
[2019-12-10] MEDS: MYSOLINE PO SCH (20:57)
[2019-12-10] MEDS: LITHIUM CARBONATE PO SCH (20:57)
[2019-12-11] MEDS: DUONEB (A & A) INH SCH ×6 (03:14→23:03)
[2019-12-11] MEDS: GENTAMICIN 0.3% OPH DROPS BOTH EYES SCH ×3 (05:18→21:31)
[2019-12-11] MEDS: ZOSYN 3.375 GM in NS 50 ML IV SCH ×4 (05:18→23:21)
[2019-12-11 05:52] LABS: HEMATOCRIT 32.2 % (37.0-47.0); HEMOGLOBIN 9.7 g/dL (12.0-16.0); MCH 29.6 PG (27-31); MCHC 30.1 g/dL (33-37); MCV 98.2 FL (81-99); MPV 10.1 FL (7.4-10.4); RBC 3.28 XMIL (4.2-5.4); RDW 14.9 % (11.5-14.5); WBC 7.82 X1000 (4.8-10.8)
[2019-12-11] MEDS: PRILOSEC PO SCH (06:10)
[2019-12-11] MEDS: ZYVOX 600 MG/D5W 600 MG/300 ML IVPB IV SCH ×2 (06:10→17:23)
[2019-12-11 06:19] LABS: AGAP 8; BUN 5 mg/dL (8-22); CALCIUM 8.2 mg/dL (8.8-10.2); CHLORIDE 105 mmol/L (98-107); COSMO 266; CREATININE 0.9 mg/dL (0.5-0.9); ESTIMATED GFR > 60; GLUCOSE 103 mg/dL (70-104); POTASSIUM 3.5 mmol/L (3.5-5.1); SODIUM 134 mmol/L (136-145); TCO2 21 mmol/L (25-35)
--- NOTE | 2019-12-11 07:15 | Diag Imaging Result Doc PS360 ---
EXAM: CHEST-PORTABLE 12/11/2019 HISTORY: respiratory failure on ventilator TECHNIQUE: AP portable at 0524 COMMENT: There is minimal increased density in the right lower lobe compared to 12/10/2019. This may represent mild pulmonary edema. IMPRESSION: Minimal pulmonary edema. Electronically signed by Derrek Dodd 12/11/2019 7:13 AM
[2019-12-11] MEDS: INDERAL LA PO SCH (09:17)
[2019-12-11] MEDS: COLACE PO SCH ×2 (09:17→21:30)
[2019-12-11] MEDS: VITAMIN B-1 PO SCH (09:17)
[2019-12-11] MEDS: SYNTHROID PO SCH (09:17)
[2019-12-11] MEDS: LITHIUM CARBONATE PO SCH ×2 (09:17→21:30)
[2019-12-11] MEDS: MIRALAX PO SCH (09:17)
[2019-12-11] MEDS: LOVENOX SUBQ SCH (09:17)
[2019-12-11] MEDS: ZYPREXA PO SCH (09:17)
[2019-12-11] MEDS: MYSOLINE PO SCH ×2 (09:18→21:30)
[2019-12-11] MEDS: FOLIC ACID PO SCH ×2 (09:18→21:30)
[2019-12-11] MEDS: M.V.I.-12 10 ML, FOLIC ACID 1 MG, MAGNESIUM SULFATE 1 GM, THIAMINE 100 MG in NS 1,000 ML IV SCH (10:55)
--- NOTE | 2019-12-11 14:53 | CONSULTATION ---
DATE OF CONSULTATION: 12/11/2019 REASON FOR CONSULT: Seizure. HISTORY OF PRESENT ILLNESS: This is a 64-year-old female with a questionable history of seizure disorder who was admitted 3 days ago. History is from chart review. The patient was found lying on the floor, confused, poorly responsive. She was not hypoxic or hypoglycemic. In the emergency department, the patient gradually began to improve. She was admitted, but on the floor she decompensated and became diaphoretic, tachycardic, and hypoxic and was ultimately intubated. There was report of witnessed seizure, though I do not see a description of this event. The patient received lorazepam. She was transferred to [facility] from [place]. Since then, the patient was able to be extubated and has shown improvement. EEG was performed earlier today. The patient denies having a history of seizures. It looks like from chart review she was evaluated here in 2017 for mental status changes and question of seizure. She had had staring spells and poor responsiveness, variable speech patterns. Plan was to start levetiracetam with a followup in the office; however, I do not see that she ever followed up in the office. The patient herself said that she has never taken a seizure medication to her knowledge. I am not sure that she is a good historian, however. The patient herself is a poor historian. The report in the chart is that she drinks a few beers a day, though she tells me she drinks 2 or 3 beers every so often. She was hyponatremic with a sodium of 125 on arrival. PAST MEDICAL AND SURGICAL HISTORY: Questionable seizure disorder, hypertension, hypothyroidism, depression with prior catatonia, reported dementia. Cholecystectomy, hysterectomy. FAMILY HISTORY: No seizures. SOCIAL HISTORY: She is a current smoker. She drinks about 2 to 3 beers every so often per her report. It says 3 beers a day in the chart, however. No illicit drugs. She is and lives with her . ALLERGIES: Listed to latex. MEDICATIONS: Her home medications are uncertain at this time. Current medications reviewed in the chart. She has lorazepam 2 mg IV every 4 hours p.r.n. agitation or seizure, with last dose given yesterday at 9 a.m. REVIEW OF SYSTEMS: Balance of 12 connected and otherwise negative except that detailed in the HPI. PHYSICAL EXAMINATION: Vital Signs: Currently afebrile. She had a temperature of 99.8 degrees yesterday. Blood pressure 126/61, pulse 77, respirations 14, and oxygen saturation 100% on 2 liters nasal cannula. General: Ms Jaffe is sitting up in bed, was having lunch. Neurologic: She is awake and alert. She knows she is in the hospital. She thought she was in [place] initially. She did not guess the year correctly. She was off by 1 month when guessing the month. She did not know the President. There is no language disturbance on brief bedside testing. No significant dysarthria. She follows simple commands. Left right and digit distinction preserved. Pupils equal, round, and reactive to bright light, 3 mm to 2 mm both eyes. Gaze is conjugate. Ocular movements are full with the exception of some limited upgaze. Visual mulligan intact to direct confrontational testing. She can hear. Face symmetric with equal activation. Facial sensation reported. Intact tongue is midline. Palate elevates symmetrically. Shoulder shrug is full. No drift. She has a difficult time relaxing in general. There is a fluctuating tremor involving either hand or foot. It seems to dissipate with more tension to relaxation. Tone is not definitely increased. There is no cogwheeling. There is mildly reduced facial expression bilaterally. Power is preserved in the limbs. Finger to nose is slow but accurate. She did not perform [id number] for me. Reflexes are absent at the ankles, trace at the wrists. No clonus. Plantar response is flexor bilaterally. I did not test her gait. DIAGNOSTICS: Head CT did not show acute finding. There is mild generalized atrophy and chronic microvascular ischemic changes. This was personally reviewed. Sodium of 125 on admission, now 134. Other labs reviewed in the chart. Toxicology positive for barbiturates, lithium of 1.32 which was elevated. Serum ethyl alcohol was negative. Again, I am not certain about her medications at home. ASSESSMENT AND PLAN: Acute transient unresponsiveness or poor responsiveness. There was at least 1 witnessed seizure-like event here in the hospital and a question of possible seizure behavior in 2017. She is not currently on any antiepileptic medications. An EEG has been ordered, and I will review that. Further recommendations to follow. Continue seizure precautions. I would also recommend an MRI of the brain with and without contrast. Thank you for the consult. cc: Radha Metz MD
--- NOTE | 2019-12-11 15:01 | PROGRESS NOTE ---
DATE: 12/11/2019 SUBJECTIVE: The patient is resting comfortably in bed. She has eaten her breakfast. The nursing staff reports that the patient had an episode where she stared off into space overnight. OBJECTIVE: Vital Signs: Temperature 98.1 degrees, blood pressure 126/61, heart rate 77, respirations 14, and O2 saturations 100% on 2 liters nasal cannula. General: This is a chronically ill-appearing elderly female lying in bed, in no acute distress. Heart: S1, S2 normal. Lungs: Equal air entry bilaterally. No wheezing. No rales. Abdomen: Positive bowel sounds. Soft, nontender, nondistended. Extremities: No edema, no cyanosis. Neurologic: The patient is alert and oriented x3. LABS: White blood cell count 7.8, hemoglobin 9.7, hematocrit 32, platelets 239,000. Sodium 134, potassium 3.5, chloride 105, CO2 of 21, BUN 5, creatinine 0.9, glucose 103, calcium 8.2. Chest x-ray shows mild pulmonary edema. ASSESSMENT AND PLAN: 1. Acute hypoxemic respiratory failure status post extubation. Continue to try and wean the patient off supplemental oxygen. Continue with bronchodilator therapy. 2. Possible seizure disorder. Neurology has been consulted. An EEG is scheduled to be done today. We will await further recommendations. 3. Hypertension. Continue on Inderal. 4. Chronic obstructive pulmonary disease. Continue with bronchodilator therapy. 5. Alcohol abuse. Continue to monitor the patient closely for withdrawal. 6. Tobacco dependence. The patient has been counseled about smoking cessation. 7. Bipolar disorder. Continue on lithium. 8. Hypothyroidism. Continue on Synthroid. 9. Gastroesophageal reflux disease. Continue on omeprazole. 10. Deep vein thrombosis prophylaxis. Continue on Lovenox. 11. Disposition. Physical therapy has been consulted. We will also consult with Monitor Technician for discharge planning. cc: Smitha Cardona MD
--- NOTE | 2019-12-11 22:02 | PULMONOLOGY PROGRESS NOTE ---
DATE: 12/11/2019 SUBJECTIVE: The patient is awake, alert, and conversant. She is doing well. She is currently being evaluated for seizure disorder by Neurology. OBJECTIVE: Vital Signs: The patient has been afebrile for the last 24 hours. Blood pressure 138/64, heart rate 73, respiratory rate 16, oxygen saturation 97% on 1 L per nasal cannula. HEENT: Pupils are equal and reactive. Oropharynx appears clear. Neck: Supple. Chest: Good air entry bilaterally without wheezing or rhonchi. Cardiac: S1, S2. Abdomen: Soft. Extremities: Without edema. LABORATORIES: White blood count 7.82, hemoglobin 9.7, platelet count 239,000. Sodium 134, potassium 3.5, chloride 105, bicarbonate 21, BUN 5, creatinine 0.9. MICROBIOLOGY: Reveals normal meena.Imaging: Chest x-ray reveals minimal density at the right lung base which may represent mild edema. IMPRESSION: A 64-year-old with: 1. Acute hypoxemic respiratory failure. 2. Transient elevation in troponin. 3. Seizure disorder. 4. Hypothyroidism. DISCUSSION: A 64-year-old with the problems outlined above. She continues to wean from oxygen. She has minimal changes on chest x-ray. PLAN: 1. Complete neurology evaluation per Dr. Corado. 2. Continue bronchial hygiene. 3. Continue to wean oxygen. 4. From a pulmonary standpoint, would consider transitioning her to an oral antibiotic such as Augmentin and complete a seven-day course. cc: Erick Schaefer MD
[2019-12-12] MEDS: DUONEB (A & A) INH SCH ×6 (03:40→22:41)
[2019-12-12] MEDS: ZOSYN 3.375 GM in NS 50 ML IV SCH (05:03)
[2019-12-12] MEDS: GENTAMICIN 0.3% OPH DROPS BOTH EYES SCH ×3 (05:03→20:57)
[2019-12-12] MEDS: ZYVOX 600 MG/D5W 600 MG/300 ML IVPB IV SCH (06:00)
[2019-12-12 06:02] LABS: HEMATOCRIT 31.9 % (37.0-47.0); HEMOGLOBIN 9.5 g/dL (12.0-16.0); MCH 29.3 PG (27-31); MCHC 29.8 g/dL (33-37); MCV 98.5 FL (81-99); RBC 3.24 XMIL (4.2-5.4); RDW 15.1 % (11.5-14.5); WBC 5.22 X1000 (4.8-10.8)
[2019-12-12] MEDS: PRILOSEC PO SCH (06:20)
[2019-12-12 06:37] LABS: AGAP 10; BUN 4 mg/dL (8-22); CALCIUM 8.3 mg/dL (8.8-10.2); CHLORIDE 108 mmol/L (98-107); COSMO 274; CREATININE 0.9 mg/dL (0.5-0.9); ESTIMATED GFR > 60; GLUCOSE 90 mg/dL (70-104); POTASSIUM 3.4 mmol/L (3.5-5.1); SODIUM 139 mmol/L (136-145); TCO2 21 mmol/L (25-35)
--- NOTE | 2019-12-12 07:32 | Diag Imaging Result Doc PS360 ---
CHEST-PORTABLE - 12/12/2019 INDICATION: respiratory failure on ventilator COMPARISON: 12/11/2019 FINDINGS: The lungs are normally expanded and clear. Heart size and mediastinal contours are normal. No pneumothorax or pleural effusion. IMPRESSION: Negative exam. Electronically signed by Edwin Alvarez 12/12/2019 7:29 AM
[2019-12-12] MEDS: MYSOLINE PO SCH ×2 (09:11→20:57)
[2019-12-12] MEDS: MIRALAX PO SCH (09:11)
[2019-12-12] MEDS: INDERAL LA PO SCH (09:11)
[2019-12-12] MEDS: LITHIUM CARBONATE PO SCH ×2 (09:11→20:56)
[2019-12-12] MEDS: COLACE PO SCH ×2 (09:11→20:56)
[2019-12-12] MEDS: ZYPREXA PO SCH (09:11)
[2019-12-12] MEDS: VITAMIN B-1 PO SCH (09:11)
[2019-12-12] MEDS: LOVENOX SUBQ SCH (09:12)
[2019-12-12] MEDS: FOLIC ACID PO SCH ×2 (09:12→20:57)
[2019-12-12] MEDS: AUGMENTIN PO SCH ×2 (09:12→20:57)
[2019-12-12] MEDS: SYNTHROID PO SCH (09:15)
[2019-12-12] MEDS: M.V.I.-12 10 ML, FOLIC ACID 1 MG, MAGNESIUM SULFATE 1 GM, THIAMINE 100 MG in NS 1,000 ML IV SCH (12:19)
--- NOTE | 2019-12-12 13:44 | PROGRESS NOTE ---
DATE: 12/12/2019 SUBJECTIVE: No major overnight events. The patient says she wants to go home. OBJECTIVE: Vital Signs: She is afebrile, blood pressure 157/80, pulse 70. General: Ms. Jaffe is supine in bed. Awake and alert. She is oriented to hospital but not the correct hospital. She knows the year. She did not know the President. She follows simple commands. She is spontaneous. She is unkempt with poor dentition. She is seen to move all extremities without obvious focal deficit. She continues to have fluctuating tremor of the limbs which is not at rest. LABS: Reviewed in the chart. Her sodium was low at 125, when she came in. Historically her sodiums have not typically been low. MRI of the brain is pending. EEG personally reviewed. Mild diffuse slowing. No epileptiform findings or seizures. ASSESSMENT AND PLAN: Acute transient poor responsiveness and 1 seizure-like event witnessed in the hospital in a patient with a history of questionable seizure disorder in the past. EEG did not show increased propensity for seizure. I think we may empirically start her on antiepileptic medication taking into account her past history as well. She will need to follow up with us in clinic however. Seizure precautions. She should not be driving. In terms of AED choice, there are many options. Keppra would likely not be the best choice given her psychiatric illness. Alternatively, Lamictal would be a good option for her but I worry about compliance and her ability to follow the titration schedule. I am also concerned there may be a cognitive impairment syndrome. Briviact could be an option but access and affordability is a concern. Historically, her sodium levels have not been low and I think we could try empiric oxcarbazepine, recheck sodium level and see how she does. cc: Radha Metz MD [facility]
--- NOTE | 2019-12-12 15:00 | EEG REPORT ---
DATE: 12/11/2019 BACKGROUND INFORMATION/TECHNIQUE: This is a digitally recorded routine EEG with video. HISTORY: 64-year-old female patient with multiple psychiatric disorders. EEG is ordered to detect evidence of seizures. MEDICATIONS: Include p.r.n. lorazepam, b.i.d. lithium, Zyprexa. EEG FINDINGS: A well-sustained posterior dominant alpha rhythm is not seen. The background at maximal alertness consists of theta range slowing with intermixed faster frequencies. No definite persistent focal slowing. No epileptiform discharges. No seizures. Hyperventilation is not performed. Photic stimulation induces a normal driving response. The patient becomes drowsy but stage N2 sleep is not seen. EKG demonstrates regular RR intervals. IMPRESSION/CLINICAL CORRELATION: Abnormal routine EEG due to mild diffuse slowing suggestive of a mild nonspecific encephalopathy. No epileptiform discharges or seizures seen on the current study. This does not rule out an underlying seizure disorder. Clinical correlation is recommended. cc: MD Smitha Sherman MD
--- NOTE | 2019-12-12 15:33 | Diag Imaging Result Doc PS360 ---
EXAM: MRI BRAIN W/WO CONTRAST 12/12/2019 HISTORY: possible seizure. eval for mass vs other TECHNIQUE: T1 sagittal, axial and post gadolinium-enhanced axial with coronal reformation, axial T2, FLAIR, DWI and coronal gradient echo. COMMENT: There are no previous MRI studies. There are patchy periventricular white matter hyperintensities on T2. There is mucosal thickening in the left sphenoid sinus. No evidence of bleed or abnormal extra-axial fluid collection is present. There is no evidence of abnormal gadolinium enhancement. IMPRESSION: Chronic ischemic microvascular changes. No evidence of acute intracranial disease. Electronically signed by Derrek Dodd 12/12/2019 3:31 PM
[2019-12-12] MEDS: TRILEPTAL PO SCH (23:39)
--- NOTE | 2019-12-13 01:20 | PULMONOLOGY PROGRESS NOTE ---
DATE: 12/12/2019 SUBJECTIVE: The patient is awake, alert and conversant. She denies cough. She denies shortness of breath. She is being trialed on room air. OBJECTIVE: The patient has been afebrile for the last 24 hours. Blood pressure 135/77, heart rate 85, respiratory rate 15, oxygen saturation 93%.HEENT: Pupils are equal and reactive. Oropharynx appears clear. Neck: Supple. Chest: Reveals good air entry bilaterally without wheezing or rhonchi. Cardiac: S1, S2. Abdomen: Soft. Extremities: Without edema. IMAGING: Chest x-ray reveals no acute infiltrates. MRI of the brain reveals chronic microvascular ischemic changes. LABORATORY DATA: White blood count 5.22, hemoglobin 9.5, platelet count 238,000. IMPRESSION: A 64-year-old with: 1. Acute hypoxemic respiratory failure. 2. Transient elevation in troponin. 3. Seizure disorder. 4. Delirium. 5. Hypothyroidism. DISCUSSION: A 64-year-old with problems outlined above. She continues to improve. She is being transitioned to room air. PLAN: 1. Discontinue oxygen with adequate oxygenation on room air. 2. Agree with transition to oral antibiotics. 3. Continue bronchial hygiene. 4. Complete neurology evaluation per Dr. Corado. 5. No additional recommendations. We will sign off. Please consult if I can be of assistance. cc: Erick Schaefer MD
[2019-12-13] MEDS: DUONEB (A & A) INH SCH ×4 (03:43→15:08)
[2019-12-13] MEDS: GENTAMICIN 0.3% OPH DROPS BOTH EYES SCH ×2 (05:09→14:58)
[2019-12-13] MEDS: PRILOSEC PO SCH (06:21)
[2019-12-13] MEDS: MIRALAX PO SCH (08:59)
[2019-12-13] MEDS: AUGMENTIN PO SCH (08:59)
[2019-12-13] MEDS: INDERAL LA PO SCH (08:59)
[2019-12-13] MEDS: TRILEPTAL PO SCH (09:00)
[2019-12-13] MEDS: VITAMIN B-1 PO SCH (09:00)
[2019-12-13] MEDS: ZYPREXA PO SCH (09:00)
[2019-12-13] MEDS: FOLIC ACID PO SCH (09:00)
[2019-12-13] MEDS: MYSOLINE PO SCH (09:00)
[2019-12-13] MEDS: COLACE PO SCH (09:00)
[2019-12-13] MEDS: LITHIUM CARBONATE PO SCH (09:00)
[2019-12-13] MEDS: SYNTHROID PO SCH (09:00)
[2019-12-13] MEDS: LOVENOX SUBQ SCH (09:01)
--- NOTE | 2019-12-13 14:44 | PROGRESS NOTE ---
DATE: 12/13/2019 SUBJECTIVE: Dr. Metz saw Ms. Jaffe for initial neurology consultation. She presented with history of episodes concerning for seizure. EEG showed mild generalized slowing without definite epileptiform discharge. MRI was unremarkable. She has been started on oxcarbazepine 300 mg b.i.d. and is tolerating that very well. We discussed potential oxcarbazepine side effects and she understands. We discussed the [place] law as it pertains to driving, and she understands her responsibility. Further, I cautioned her not to get into any situation in which a seizure or other episode of altered awareness might result in serious injury to her or to someone else. PLAN: I will plan to see her as an outpatient to follow up on the oxcarbazepine titration. Thanks for asking Neurology to see Ms. Jaffe. cc: MD SHANDA Schmidt III
--- NOTE | 2019-12-13 14:52 | PROGRESS NOTE ---
DATE: 12/12/2019 INTERVAL HISTORY: No further seizure activity. Oxygenation much improved. No new complaints. No acute events overnight. The patient states she would like to go home as soon as possible. REVIEW OF SYSTEMS: Twelve-point review of systems negative except as per interval history. LABS: WBCs 5.2, hemoglobin 9.5, hematocrit 31.8, platelets 238,000. Sodium 139, potassium 3.4, bicarb 21, BUN 4, creatinine 0.4. VITALS: T-max 99.8 degrees, pulse 79, respirations 16, blood pressure 170/80, O2 saturations 96% on room air. IMAGING: Chest x-ray with essentially no acute process. MRI brain with chronic ischemic microvascular changes but no acute process. PHYSICAL EXAMINATION: General: No acute distress. Vitals: As above. HEENT: Normocephalic, atraumatic. Moist mucous membranes. Neck: No cervical adenopathy. Cardiovascular: Regular rate and rhythm. No murmurs noted. Pulmonary: Clear to auscultation bilaterally. No wheezing, rales, or rhonchi. Abdomen: Soft, nontender, nondistended. Bowel sounds positive. Extremities: Peripheral pulses intact. No clubbing or cyanosis. Neurologic: Cranial nerves grossly intact. No focal deficits identified. Psychiatric: Normal mood and affect. Awake, alert, and oriented x3. ASSESSMENT AND PLAN: 1. Acute hypoxemic respiratory failure. Likely secondary to seizure, now essentially resolved. 2. Seizure. Neurology on board. EEG performed and reportedly with no clear evidence of epilepsy. MRI obtained this afternoon and reads showing no acute process. Awaiting final Neurology recommendation. They will likely start her on empiric seizure medication. 3. Chronic obstructive pulmonary disease. No sign of exacerbation currently. We will monitor. 4. Hypertension. Occasional moderate elevations but overall reasonable control on current propranolol. 5. Hypothyroidism. Continue Synthroid. 6. Bipolar disorder. Continue lithium and Zyprexa. 7. Gastroesophageal reflux disease. Continue PPI. 8. Alcohol abuse. No sign of withdrawal today. 9. Tobacco. Patient has been counseled on cessation. 10. Disposition. If no further issues develop, then anticipate discharge tomorrow after final Neurology recommendations.
[2019-12-13 15:15] VITALS: BP 124/85
--- NOTE | 2019-12-15 07:31 | DISCHARGE SUMMARY ---
ADMISSION DATE: 12/08/2019 DISCHARGE DATE: 12/13/2019 CONSULTATIONS: 1. Pulmonology, Dr. Schaefer. 2. Neurology, Dr. Metz. PERTINENT STUDIES: Chest x-ray no acute process. Head CT with chronic microvascular changes, but no acute process. Echocardiogram normal EF. No major valvular pathology. EEG with mild diffuse slowing, but no epileptiform changes or discharges. MRI brain with again chronic microvascular changes, but no acute process. No mass or acute stroke. DISCHARGE DIAGNOSES: 1. Likely seizure. 2. Acute hypoxemic respiratory failure, likely secondary to seizure. 3. Chronic obstructive pulmonary disease. 4. Hypertension. 5. Hypothyroidism. 6. Bipolar disorder. 7. Gastroesophageal reflux disease. 8. History of alcohol abuse. 9. Tobacco abuse. HOSPITAL COURSE: The patient was brought in by ambulance. She was found down on her bathroom floor and was unresponsive to verbal stimuli at that time. She was improving by the time she arrived in the ER. Reportedly, after about 30 minutes after EMS found her, she began to come around and respond, but continued to be confused for another 30 minutes or so. On admission, patient was hemodynamically stable, but after admission the patient appeared to have a tonic- clonic seizure, and became diaphoretic, tachycardic, and hypoxic. She was intubated although she was able to be weaned from the vent pretty rapidly. Chest x-ray repeated at that point continued to show no evidence of acute lung pathology. Neurology was involved. An EEG was checked, which showed no clear epileptiform discharges. MRI of brain without did not show any obvious cause for this, but again no lung pathology was found. She extubated very quickly within about 24 hours. After further monitoring evaluation, Neurology eventually elected to place patient on oxcarbazepine for seizure prophylaxis. She was continued on her home lithium and Zyprexa. Family members were queried, and she has family that administer her medications and they reported expected pill counts so overdose was not expected. Patient does have some history of alcohol abuse, but did not have any clear sign of withdrawal during the hospitalization. Her other comorbidities were largely stable. It was thought that she had a seizure that precipitated the hypoxia and intubation. The patient appeared to do well on the oxcarbazepine so she was discharged home to follow up with PCP and Neurology. Although no clear evidence of infection was ever found, Pulmonology did recommend a short course of Augmentin to cover for any possible aspiration. DISCHARGE VITAL SIGNS: Temperature 98.6, pulse 80, respirations 16, blood pressure 124/85 and O2 saturation 97% on room air. DISCHARGE DIET: Regular. DISCHARGE MEDICATIONS: 1. Cymbalta 60 mg p.o. daily. 2. Trazodone 50 mg p.o. at bedtime as needed. 3. Donepezil 5 mg p.o. at bedtime. 4. Fieldon 150 mg p.o. b.i.d. 5. Mirtazapine 30 mg p.o. at bedtime. 6. Olanzapine 10 mg p.o. daily. 7. Primidone 50 mg p.o. b.i.d. 8. Propranolol 100 mg p.o. daily. 9. Synthroid 50 mcg p.o. daily. 10. Augmentin 875 mg p.o. b.i.d. 11. Omeprazole 40 mg p.o. daily. 12. Oxcarbazepine 300 mg p.o. b.i.d. FOLLOWUP AND PLAN: The patient discharging home on oral antiepileptic. Follow up with PCP and Neurology. Keeping patient off of bupropion because of concern that it may have lowered her seizure threshold. TIME SPENT: Greater than 30 minutes spent arranging discharge and counseling patient.
== END 2019-12-13 16:30 | disposition home or self-care (01) | DRG 100 ==
LOC: P.ED 05:27 → P.MEDSURG 11:00 → SUATTDRO 11:00 → P.EDIPHOLD 15:18 → ICU 17:08 → 2N 12-11 00:49
PROVIDERS: ATTEND Internal Medicine